=== PATIENT | female | born 1950 | race African-American/Black ===

== ENCOUNTER → 2017-03-03 | Outpatient (CLI) | payer MEDICARE ==
[~2017-03-03] MED LIST: ALLEGRA; ATENOLOL PO; B COMPLEX1 TAB PO; BONIVA150 MG PO; CIPRO PO; CLEOCIN; FUROSEMIDE40 MG PO; KLOR-CON PO; LORTAB 7.5-5001 TAB; NEXIUM PO; NORVASC PO; PRILOSEC; PYRIDIUM PO; TYLOX 5-500 CA1 EACH; TYLOX 5/500 CAP1 CAP PO; VITAMIN D350000 UNIT PO; XYZAL5 MG PO; ZELNORM
--- NOTE | ~2017-03-03 | MY29 ---
[facility] A Service of [facility] RADIOLOGY TEXT RESULTS PATIENT: ELLA GIRARD LOCATION: [facility] : 50 UNIT #: [id number] AGE: [address]: Jae Noble MD SEX: F ORDER DR: [id number] [facility] [address] [place], [place] [address] [id number] O MR#: [id number] Acc #: [id number] NAME: ELLA GIRARD : 1950 SEX: F STUDY DATE/TIME: 03/03/2017 9:27 UNIT: [facility] ROOM: STUDY DESCRIPTION: MY NEVA SCREENING W/ CAD BILAT Attending Physician: Jae Noble M.D. Ordering Physician: Jae Noble M.D. Primary Care Physician: Jae Noble M.D. MEDICAL IMAGING REPORT This report is preliminary unless electronic signature is present EXAM Bilateral Digital Screening Mammogram with CAD INDICATION Breast cancer screening. 66-year-old asymptomatic female who reports a mother with breast cancer. Right reduction mammoplasty. COMPARISON 02/20/2016, 01/30/2015, 12/07/2013, 12/02/2012, 11/22/2011, 11/12/2010, 11/10/2009, 10/29/2008, 09/30/2007, 11/19/2006. FINDINGS The breasts are almost entirely fatty. No suspicious findings are present. IMPRESSION No mammographic evidence of malignancy. Annual screening mammography and clinical breast exam are recommended. A result letter will be sent to the patient. Patients over the age of 40 are entered into a reminder system with target due date for the next mammogram. BIRADS: 1 Negative Dictated by... Pelon Boyer M.D. THIS IS AN ELECTRONICALLY VERIFIED REPORT Pelon Boyer M.D. at 03/06/2017 7:36 PM BLM/pcl [facility] A Service of [facility] RADIOLOGY TEXT RESULTS PATIENT: ELLA GIRARD LOCATION: [facility] #: [id number] : 50 UNIT #: [id number] AGE: [address]: Jae Noble MD SEX: F ORDER DR: TD: 03/03/2017 17:11 JOB #: [id number] MEDICAL IMAGING REPORT Page 1 of 1 COPY
== END | disposition home or self-care (01) ==
LOC: CWCC 09:06
DX: Z12.31 Encounter for screening mammogram for malignant neoplasm of breast (principal); Z80.3 Family history of malignant neoplasm of breast
CPT/HCPCS: G0202